=== PATIENT | male | born 1985 | race Caucasian/White ===

== ENCOUNTER 2023-11-16 16:17 | Inpatient (IN) | payer MEDICAID ==
[~2023-11-16] VITALS: Ht 165.1 cm; Wt 77.1 kg
[2023-11-16 17:04] VITALS: BP 182/109; PULSE 128; RESP 18; TEMP 98.9; O2SAT 94
[2023-11-16 17:30] VITALS: O2SAT 98
[2023-11-16 18:20] LABS: APPEARANCE,URINE CLEAR (CLEAR); BILIRUBIN,URINE NEGATIVE (NEGATIVE); BLOOD, URINE TRACE-I (NEGATIVE); COLOR,URINE YELLOW (YELLOW); LEUKOCYTE ESTERASE ,URINE NEGATIVE (NEGATIVE); NITRITE, URINE NEGATIVE (NEGATIVE); PROTEIN,URINE TRACE (NEGATIVE); UGLUCOSE NEGATIVE (NEGATIVE)
[2023-11-16 18:22] LABS: BASOPHILS # (AUTO) 0.2 K/uL (0.00-0.22); BASOPHILS % (AUTO) 0.8 % (0.0-2.0); EOSINOPHILS % (AUTO) 0.1 % (0.0-4.0); HEMATOCRIT 38.9 % (36-52); LYMPHOCYTES # (AUTO) 2.7 K/uL (2.0-11.5); LYMPHOCYTES % (AUTO) 13.9 % (20.5-51.1); MEAN CORPUSCULAR HEMOGLOBIN 34 pg (27-31); MEAN CORPUSCULAR HGB CONC 34 g/dL (33-37); MEAN CORPUSCULAR VOLUME 101.6 fL (80-94); MONOCYTES # (AUTO) 2.8 K/uL (0.8-1.0); MONOCYTES % (AUTO) 14.6 % (1.7-9.3); NEUTROPHILS # (AUTO) 13.6 K/uL (1.8-7.7); NEUTROPHILS % (AUTO) 70.6 % (42.2-75.2); PLATELET COUNT (AUTO) 224 K/uL (140-450); RED BLOOD CELL COUNT(AUTO) 3.83 MIL/uL (4.20-6.10); RED CELL DISTRIBUTION WIDTH 14.2 % (11.6-13.7); WHITE BLOOD COUNT (AUTO) 19.3 K/uL (4.8-10.8)
[2023-11-16 18:40] LABS: BACTERIA,URINE FEW /HPF (None Seen); MUCUS,URINE RARE /LPF (None Seen); RBC,URINE 0-5 /HPF (0-5); SQUAMOUS EPITHELIAL CELL,UR RARE /LPF (0-3 (FEW)); WBC,URINE 0-5 /HPF (0-5)
[2023-11-16 18:57] LABS: ANION GAP 17.6 (8-16); CALCIUM 9.3 mg/dL (8.5-10.1); CARBON DIOXIDE 23.1 mmol/L (21-32); CREATININE 0.7 mg/dL (0.6-1.3); POTASSIUM 3.7 mmol/L (3.5-5.1)
[2023-11-16 19:12] LABS: ALBUMIN 3.1 g/dL (3.4-5.0); BILIRUBIN,DIRECT 0.8 mg/dL (0.0-0.3); TOTAL BILIRUBIN 1.7 mg/dL (0.0-1.0); TOTAL PROTEIN, SERUM 8.3 g/dL (6.4-8.2)
[2023-11-16] MEDS: NACL 0.9% 2,000 ML IV ONE (19:51)
[2023-11-16] MEDS ORDERED: PIPERACILLIN/TAZOBACTAM 3.375 GM VIAL IV ONE (19:55)
[2023-11-16 20:14] LABS: LACTIC ACID 1.6 mmol/L (0.4-2.0)
[2023-11-16] MEDS: PIPERACILLIN/TAZOBACTAM 3.375 GM in DEXTROSE 5% 50 ML IV ONE (20:20)
[2023-11-16 20:23] LABS: AMPHETAMINE, URINE NEGATIVE ng/ml (NEG <=1000); BARBITURATE, URINE NEGATIVE ng/ml (NEG <=200); BENZODIAZEPINE, URINE NEGATIVE ng/mL (NEG <=200); CANNABINOID, URINE POSITIVE ng/mL (NEG <=50); COCAINE, URINE NEGATIVE ng/mL (NEG <=300); OPIATE, URINE NEGATIVE ng/mL (NEG <=2000); PHENCYCLIDINE SCREEN,URINE NEGATIVE ng/mL (NEG <=25)
[2023-11-16] MEDS: LORazepam 2 MG/ML VIAL IVP ONE (22:15)
[2023-11-16] MEDS ORDERED: ACETAMINOPHEN 325 MG TAB PO PRN (22:50)
[2023-11-16] MEDS ORDERED: ONDANSETRON 4 MG/2 ML VIAL IVP PRN (22:50)
[2023-11-16] MEDS ORDERED: LORazepam 1 MG TAB PO PRN ×2 (22:50→22:55)
[2023-11-16] MEDS ORDERED: ZOLPIDEM 5 MG TAB PO PRN (22:50)
[2023-11-16] MEDS ORDERED: LORazepam 2 MG/ML VIAL IVP PRN (23:00)
[2023-11-16 23:46] VITALS: PULSE 118; RESP 18; O2SAT 95
[2023-11-17 04:00] VITALS: BP 125/83; PULSE 103; PULSE 115; RESP 16; TEMP 97.5; O2SAT 95
[2023-11-17] MEDS: NACL 0.9% 1,000 ML IV SCH (05:24)
[2023-11-17 06:41] LABS: BASOPHILS # (AUTO) 0.1 K/uL (0.00-0.22); BASOPHILS % (AUTO) 0.4 % (0.0-2.0); EOSINOPHILS % (AUTO) 0.1 % (0.0-4.0); HEMATOCRIT 33.5 % (36-52); HEMOGLOBIN 11.4 g/dL (12.0-18.0); LYMPHOCYTES # (AUTO) 1.7 K/uL (2.0-11.5); LYMPHOCYTES % (AUTO) 10.1 % (20.5-51.1); MEAN CORPUSCULAR HEMOGLOBIN 35 pg (27-31); MEAN CORPUSCULAR HGB CONC 34 g/dL (33-37); MEAN CORPUSCULAR VOLUME 102.2 fL (80-94); MONOCYTES # (AUTO) 2.2 K/uL (0.8-1.0); MONOCYTES % (AUTO) 13.4 % (1.7-9.3); NEUTROPHILS # (AUTO) 12.6 K/uL (1.8-7.7); PLATELET COUNT (AUTO) 169 K/uL (140-450); RED BLOOD CELL COUNT(AUTO) 3.28 MIL/uL (4.20-6.10); RED CELL DISTRIBUTION WIDTH 14.2 % (11.6-13.7); WHITE BLOOD COUNT (AUTO) 16.6 K/uL (4.8-10.8)
[2023-11-17 07:10] LABS: ALBUMIN 2.4 g/dL (3.4-5.0); ANION GAP 12.4 (8-16); CALCIUM 8.1 mg/dL (8.5-10.1); CARBON DIOXIDE 24.9 mmol/L (21-32); CREATININE 0.6 mg/dL (0.6-1.3); MAGNESIUM 2.1 mg/dL (1.8-2.4); PHOSPHORUS 2.6 mg/dL (2.5-4.9); POTASSIUM 3.3 mmol/L (3.5-5.1); TOTAL BILIRUBIN 2.1 mg/dL (0.0-1.0); TOTAL PROTEIN, SERUM 6.6 g/dL (6.4-8.2)
[2023-11-17 08:00] VITALS: BP 153/92; PULSE 105; PULSE 119; RESP 19; TEMP 98.7; O2SAT 95; O2SAT 96
[2023-11-17] MEDS: chlordiazePOXIDE 25 MG CAP PO SCH (09:00)
[2023-11-17] MEDS: THIAMINE 100 MG TAB PO SCH (09:00)
[2023-11-17] MEDS: FOLIC ACID 1 MG TAB PO SCH (09:00)
[2023-11-17] MEDS: MULTIVITAMIN 1 TAB PO SCH (09:00)
[2023-11-17] MEDS: DOCUSATE SODIUM 100 MG GELCAP PO SCH (09:00)
[2023-11-17 12:00] VITALS: BP 146/97; PULSE 104; RESP 18; TEMP 99; O2SAT 96
[2023-11-17] MEDS: PIPERACILLIN/TAZOBACTAM 3.375 GM in DEXTROSE 5% 50 ML IV SCH (12:12)
[2023-11-17] MEDS: POTASSIUM CHLORIDE 10 MEQ TABER PO SCH (13:16)
[2023-11-17] MEDS: MAGNESIUM OXIDE 400 MG TAB PO SCH (13:16)
[2023-11-17] MEDS: SODIUM PHOS / POTASSIUM PHOS 1 PKT PDR PO SCH (13:17)
[2023-11-17] MEDS: THIAMINE 200 MG/2 ML VIAL IM SCH (13:18)
[2023-11-17 16:00] VITALS: BP 149/93; PULSE 108; PULSE 114; RESP 18; TEMP 99; O2SAT 96
[2023-11-17 20:00] VITALS: BP 143/100; PULSE 112; PULSE 113; PULSE 118; RESP 18; TEMP 97.3; O2SAT 95
[2023-11-18] VITALS: BP 143/85; PULSE 97; PULSE 99; RESP 18; TEMP 97.5; O2SAT 96
[2023-11-18 07:14] LABS: BASOPHILS # (AUTO) 0.1 K/uL (0.00-0.22); BASOPHILS % (AUTO) 0.4 % (0.0-2.0); EOSINOPHILS # (AUTO) 0.1 K/uL (0-0.4); EOSINOPHILS % (AUTO) 0.5 % (0.0-4.0); HEMATOCRIT 33.8 % (36-52); HEMOGLOBIN 11.2 g/dL (12.0-18.0); LYMPHOCYTES % (AUTO) 12.6 % (20.5-51.1); MEAN CORPUSCULAR HEMOGLOBIN 34 pg (27-31); MEAN CORPUSCULAR HGB CONC 33 g/dL (33-37); MEAN CORPUSCULAR VOLUME 103.3 fL (80-94); MONOCYTES # (AUTO) 2.1 K/uL (0.8-1.0); MONOCYTES % (AUTO) 13.5 % (1.7-9.3); NEUTROPHILS # (AUTO) 11.5 K/uL (1.8-7.7); PLATELET COUNT (AUTO) 184 K/uL (140-450); RED BLOOD CELL COUNT(AUTO) 3.27 MIL/uL (4.20-6.10); RED CELL DISTRIBUTION WIDTH 13.8 % (11.6-13.7); WHITE BLOOD COUNT (AUTO) 15.7 K/uL (4.8-10.8)
[2023-11-18 08:00] VITALS: BP 157/88; PULSE 90; PULSE 94; RESP 18; TEMP 97.8; O2SAT 95; O2SAT 96
[2023-11-18] MEDS: MULTIVITAMIN 1 TAB PO SCH (08:16)
[2023-11-18 10:45] LABS: ANION GAP 13.2 (8-16); CALCIUM 8.4 mg/dL (8.5-10.1); CARBON DIOXIDE 24.8 mmol/L (21-32); CREATININE 0.7 mg/dL (0.6-1.3)
[2023-11-18 10:51] LABS: ALBUMIN 2.3 g/dL (3.4-5.0); MAGNESIUM 2.2 mg/dL (1.8-2.4); PHOSPHORUS 3.2 mg/dL (2.5-4.9); TOTAL BILIRUBIN 1.7 mg/dL (0.0-1.0); TOTAL PROTEIN, SERUM 6.7 g/dL (6.4-8.2)
[2023-11-18 12:00] VITALS: BP 146/84; PULSE 112; PULSE 113; RESP 18; TEMP 98.5; O2SAT 97
[2023-11-18 16:00] VITALS: BP 138/94; PULSE 103; PULSE 116; RESP 18; TEMP 99.2; O2SAT 98
[2023-11-18 20:00] VITALS: BP 156/97; PULSE 103; RESP 18; TEMP 98; O2SAT 96
[2023-11-19] VITALS: BP 156/97; PULSE 96; RESP 20; TEMP 97.4; O2SAT 96
[2023-11-19 00:01] VITALS: BP 120/78
[2023-11-19 04:00] VITALS: BP 145/91; PULSE 98; RESP 18; TEMP 97.7; O2SAT 96
[2023-11-19 06:48] LABS: BASOPHILS # (AUTO) 0.1 K/uL (0.00-0.22); BASOPHILS % (AUTO) 0.5 % (0.0-2.0); EOSINOPHILS # (AUTO) 0.1 K/uL (0-0.4); EOSINOPHILS % (AUTO) 0.4 % (0.0-4.0); HEMATOCRIT 35.2 % (36-52); HEMOGLOBIN 11.8 g/dL (12.0-18.0); LYMPHOCYTES % (AUTO) 14.4 % (20.5-51.1); MEAN CORPUSCULAR HEMOGLOBIN 35 pg (27-31); MEAN CORPUSCULAR HGB CONC 33 g/dL (33-37); MEAN CORPUSCULAR VOLUME 103.1 fL (80-94); MONOCYTES # (AUTO) 2.2 K/uL (0.8-1.0); MONOCYTES % (AUTO) 15.5 % (1.7-9.3); NEUTROPHILS # (AUTO) 9.7 K/uL (1.8-7.7); NEUTROPHILS % (AUTO) 69.2 % (42.2-75.2); PLATELET COUNT (AUTO) 226 K/uL (140-450); RED BLOOD CELL COUNT(AUTO) 3.41 MIL/uL (4.20-6.10); RED CELL DISTRIBUTION WIDTH 13.8 % (11.6-13.7); WHITE BLOOD COUNT (AUTO) 14.1 K/uL (4.8-10.8)
[2023-11-19 07:20] LABS: ALBUMIN 2.4 g/dL (3.4-5.0); ANION GAP 11.5 (8-16); CALCIUM 8.2 mg/dL (8.5-10.1); CARBON DIOXIDE 25.5 mmol/L (21-32); CREATININE 0.6 mg/dL (0.6-1.3); MAGNESIUM 2.1 mg/dL (1.8-2.4); PHOSPHORUS 3.7 mg/dL (2.5-4.9); TOTAL BILIRUBIN 1.4 mg/dL (0.0-1.0); TOTAL PROTEIN, SERUM 6.7 g/dL (6.4-8.2)
[2023-11-19 08:00] VITALS: BP 129/68; PULSE 76; PULSE 93; PULSE 96; RESP 18; TEMP 97.6; O2SAT 94; O2SAT 96
[2023-11-19] MEDS ORDERED: MAG SULF 2000 MG/WATER PREMIX 50 ML IV PRN (08:10)
[2023-11-19] MEDS ORDERED: MAGNESIUM OXIDE 400 MG TAB PO PRN (08:10)
[2023-11-19] MEDS ORDERED: KCL 20 MEQ IN 100 mL PREMIX 200 ML IV PRN (08:10)
[2023-11-19] MEDS ORDERED: POTASSIUM CHLORIDE 10 MEQ TABER PO PRN (08:10)
[2023-11-19] MEDS: POTASSIUM CHLORIDE 40 MEQ, LIDOCAINE 1% 25 MG in NACL 0.9% 250 ML IV SCH (12:16)
[2023-11-19 16:00] VITALS: BP 142/99; PULSE 105; RESP 18; TEMP 98.6; O2SAT 98
[2023-11-19 20:00] VITALS: BP 143/96; PULSE 116; RESP 19; TEMP 98.3; O2SAT 96
[2023-11-20 04:00] VITALS: BP 139/94; PULSE 99; RESP 20; TEMP 97.8; O2SAT 96
[2023-11-20 06:58] LABS: BASOPHILS # (AUTO) 0.1 K/uL (0.00-0.22); BASOPHILS % (AUTO) 0.8 % (0.0-2.0); EOSINOPHILS # (AUTO) 0.1 K/uL (0-0.4); EOSINOPHILS % (AUTO) 0.7 % (0.0-4.0); HEMATOCRIT 34.9 % (36-52); HEMOGLOBIN 11.8 g/dL (12.0-18.0); LYMPHOCYTES # (AUTO) 2.5 K/uL (2.0-11.5); LYMPHOCYTES % (AUTO) 18.1 % (20.5-51.1); MEAN CORPUSCULAR HEMOGLOBIN 35 pg (27-31); MEAN CORPUSCULAR HGB CONC 34 g/dL (33-37); MEAN CORPUSCULAR VOLUME 103.2 fL (80-94); MONOCYTES # (AUTO) 2.4 K/uL (0.8-1.0); MONOCYTES % (AUTO) 17.3 % (1.7-9.3); NEUTROPHILS # (AUTO) 8.9 K/uL (1.8-7.7); NEUTROPHILS % (AUTO) 63.1 % (42.2-75.2); PLATELET COUNT (AUTO) 293 K/uL (140-450); RED BLOOD CELL COUNT(AUTO) 3.39 MIL/uL (4.20-6.10); RED CELL DISTRIBUTION WIDTH 14.1 % (11.6-13.7); WHITE BLOOD COUNT (AUTO) 14.1 K/uL (4.8-10.8)
[2023-11-20 07:14] LABS: ALBUMIN 2.3 g/dL (3.4-5.0); ANION GAP 9.5 (8-16); CALCIUM 8.3 mg/dL (8.5-10.1); CARBON DIOXIDE 27.8 mmol/L (21-32); CREATININE 0.7 mg/dL (0.6-1.3); MAGNESIUM 2.1 mg/dL (1.8-2.4); PHOSPHORUS 3.7 mg/dL (2.5-4.9); POTASSIUM 3.3 mmol/L (3.5-5.1); TOTAL PROTEIN, SERUM 6.5 g/dL (6.4-8.2)
[2023-11-20 08:00] VITALS: BP 137/93; PULSE 116; PULSE 94; RESP 18; TEMP 97.8; O2SAT 97
[2023-11-20] MEDS ORDERED: AMOX-999 PO (10:38)
[2023-11-20 13:10] VITALS: BP 133/94; PULSE 95; RESP 18; TEMP 97.2
== END 2023-11-20 14:17 | disposition home or self-care (01) | DRG 720 ==
LOC: MED 16:17 → EDBD 16:17 → MTU 22:50
PROVIDERS: ADMIT Student in an Organized Health Care Education/Training Program; ATTEND Student in an Organized Health Care Education/Training Program
DX: A41.9 Sepsis, unspecified organism (principal); J69.0 Pneumonitis due to inhalation of food and vomit; E43 Unspecified severe protein-calorie malnutrition; J18.9 Pneumonia, unspecified organism; E87.1 Hypo-osmolality and hyponatremia; E87.6 Hypokalemia; D53.9 Nutritional anemia, unspecified; R74.01 Elevation of levels of liver transaminase levels; F10.239 Alcohol dependence with withdrawal, unspecified; Z68.28 Body mass index [BMI] 28.0-28.9, adult; Y90.4 Blood alcohol level of 80-99 mg/100 ml; G40.89 Other seizures
CPT/HCPCS: 36415; 71045; 76604; 76705; 80048; 80053; 80076; 80305; 81001; 83605; 83690; 83735; 84100; 85025; 87040; 87081; 96361; 96365; 96375; 99291; G0482; J2001; J2060; J2543; J3411; J3480; J7030; J7060; Q0092; Q9967